=== PATIENT | female | born 1995 | race African-American/Black ===

== ENCOUNTER 2019-08-10 04:58 | Emergency (ER) | payer OTHER ==
[~2019-08-10] VITALS: Ht 167.6 cm; Wt 91.2 kg
[~2019-08-10 04:58] MED LIST: STOMACH MED
[2019-08-10 05:11] VITALS: BP 149/85
[2019-08-10] MEDS ORDERED: MAPAP500 MG PO (05:15)
[2019-08-10] MEDS ORDERED: PENICILLIN VK500 M1 PO (05:27)
[2019-08-10] MEDS ORDERED: TRAMADOL 50 MG50 MG PO (05:27)
== END 2019-08-10 06:17 | disposition home or self-care (01) ==
LOC: ER 04:58
DX: K02.9 Dental caries, unspecified (principal); K04.7 Periapical abscess without sinus; J45.909 Unspecified asthma, uncomplicated